=== PATIENT | male | born 1965 | race Caucasian/White ===

== ENCOUNTER 2017-09-16 07:30 | Emergency (ER) | payer OTHER ==
[2017-09-16 07:45] VITALS: BP 181/94
--- NOTE | 2017-09-16 07:48 | UC ---
Ear Complaint HPI - HPI Summary HPI Summary: This is eric Bruno Porter documenting for attending Ken Barney MD. This patient is a 52 year old M [place] [facility] chief complaint of left ear pain for the last 2 days. Pt states the onset occurred when he was sitting watching tv. He has felt like there is liquid in his ear for a long time but has not seen an ear doctor. The patient rates the pain 8/10 in severity. Symptoms alleviated by ibuprofen. Patient reports decreased auditory acuity. He denies sore throat, cough, chest congestion, and fever. Pt states he has a hx of otitis externa and this feels similar. - History of Current Complaint Chief Complaint: UCEar Stated Complaint: EAR ISSUE Hx Obtained From: Patient Onset/Duration: Lasting Days - 2, Still Present Severity Initially: Severe Severity Currently: Severe Pain Intensity: 8 Pain Scale Used: 0-10 Numeric Alleviating Factors: OTC Meds Associated Signs/Symptoms: Positive: Hearing Loss - Allergies/Home Medications Allergies/Adverse Reactions: Allergies Allergy/AdvReac Type Severity Reaction Status Date / Time Penicillins Allergy anaph Verified 09/16/17 07:37 Sulfa (Sulfonamide Allergy Swelling Verified 09/16/17 07:37 Antibiotics) PMH/Surg Hx/FS Hx/Imm Hx - Additional Past Medical History Additional PMH: otitis externa Cardiovascular History: Hypertension - not on meds Other History Of: Negative For: Anticoagulant Therapy - Surgical History Surgical History: Yes Surgery Procedure, Year, and Place: Fractured right arm as a child - Family History Known Family History: Negative: Cardiac Disease, Hypertension, Diabetes - Social History Lives: With Family - and children Alcohol Use: Rare Substance Use Type: None Smoking Status (MU): Never Smoked Tobacco - Immunization History Most Recent Tetanus Shot: Unknown Review of Systems Constitutional: Negative - fever ENT: Ear Ache, Other - mild hearing loss All Other Systems Reviewed And Are Negative: Yes Physical Exam - Summary Physical Exam Summary: General: well-appearing, no pain distress Skin: warm, color reflects adequate perfusion, dry Head: normal Eyes: EOMI, JESSICA ENT: The left ear canal is swollen, moist, and there is some scaring on the bilateral tms. Pt is ttp of tragus and traction on the pinna on the left Neck: supple, nontender Respiratory: CTA, breath sounds present Cardiovascular: RRR Abdomen: soft, nontender Bowel: present Musculoskeletal: normal, strength/ROM intact Neurological: sensory/motor intact, A&O x3 Psychological: affect/mood appropriate Triage Information Reviewed: Yes Vital Signs: Initial Vital Signs Temp 98 F 09/16/17 07:40 Pulse 77 09/16/17 07:40 Resp 16 09/16/17 07:40 BP 181/94 09/16/17 07:40 Pulse Ox 100 09/16/17 07:40 Vital Signs Reviewed: Yes Ear Complaint Course/Dx - Course Course Of Treatment: BP noted and patient was advised to follow up with his PCP. IN THE PAST, THE PATIENT REPORTS THE NEED FOR PO ABX THEREFORE, RX BOTH EAR DROPS AND PO ABX. F/U PMD AND ENT. - Differential Dx/Diagnosis Provider Diagnoses: LEFT OTITIS EXTERNA. HTN Discharge - Sign-Out/Discharge Documenting (check all that apply): Patient Departure - Discharge Plan Condition: Stable Disposition: HOME Prescriptions: Ciprofloxacin TAB* [Cipro 500 MG TAB*] 500 mg PO BID #20 tab Ciprofloxacin/Hydrocortisone [Cipro Hc Otic Suspension] 3 drop OT BID #10 ml Patient Education Materials: Otitis Externa (ED) Referrals: [facility] [Provider Group] Mariano Burgos MD [Primary Care Provider] - Wolf Beard MD [Medical Doctor] - Additional Instructions: FOLLOW UP WITH YOUR PRIMARY CARE DOCTOR AND DR BEARD, ENT. GET RECHECKED FOR ANY WORSENING OF YOUR CONDITION OR QUESTIONS OR CONCERNS. Your blood pressure was elevated during todays visit; please follow up with your primary care provider within a week for further evaluation. - Billing Disposition and Condition Condition: STABLE Disposition: Home Attestation Statement Scribe Attestation: This is eric Porter documenting for attending Ken Barney MD. User Type: Provider with Scribe Provider Attestation: The documentation recorded by the somibe accurately reflects the service I personally performed and the decisions made by me.
== END 2017-09-16 08:15 | disposition home or self-care (01) ==
LOC: UCEAST 07:30
DX: H60.92 Unspecified otitis externa, left ear (principal); I10 Essential (primary) hypertension; Z88.0 Allergy status to penicillin; Z88.1 Allergy status to other antibiotic agents
CPT/HCPCS: 99202; G0463

== ENCOUNTER 2019-04-03 09:10 | Emergency (ER) | payer OTHER ==
--- OUTSIDE RECORDS SUMMARY | 2019-04-03 09:18 | XMS REPORT | Continuity of Care Document ---
:1965 External Reference #:[id number] Author Name Louisa Sharma PA-C Address [address] [place] [address] Care Team Providers Name Role Phone Mariano Burgos M.D. 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 Seafood Problems Active Problems Provider Date Essential hypertension Shahab Argueta MD Onset: 09/16/2017 Obesity Shahab Argueta MD Onset: 09/20/2017 Diffuse otitis externa Shahab Argueta MD Onset: 09/20/2017 Social History Type Date Description Comments Sex Unknown Tobacco Use Start: Unknown Never Smoked Cigarettes Tobacco Use Start: Unknown Never Smoked Cigars Tobacco Use Start: Unknown Never Smoked A Pipe Smokeless Tobacco Never Used Smokeless Tobacco ETOH Use Currently rarely consumes alcohol Tobacco Use Start: Unknown Patient has never smoked Smoking Status Reviewed: 03/15/19 Patient has never smoked Allergies, Adverse Reactions, Alerts Active Allergies Reaction Severity Comments Date Sulfa 12/03/2003 Penicillin 12/03/2003 Medications Active Medications SIG Qnty Indications Ordering Provider Date Tobramycin-Dexamethaso apply to right ear 10ml E66.9 Wolf Ray 2019 ne 2 times a day for MD Chirag 0.3-0.1% Suspension 10 days. Multivitamin Men as directed Unknown Tablets Tumeric Unknown Probiotic Acidophilus 1 by mouth every Unknown day Capsules Cipro HC instill 4 drops in 10ml Vitor N. 0.2-1% right ear two Cassandra Saha Suspension times per day Immunizations Description No Information Available Vital Signs Date Vital Result Comment 03/15/2019 3:09pm Body Temperature 97.5 F Weight 350.00 lb Weight 158.760 kg Height 72.75 inches 6'0.75" Height in cm's 184.8 cm BMI (Body Mass Index) 46.5 kg/m2 10/29/2017 8:52am Weight 350.00 lb Weight 158.760 kg Height 72.75 inches 6'0.75" Height in cm's 184.8 cm BMI (Body Mass Index) 46.5 kg/m2 Results Description No Information Available Procedures Date Code Description Status 03/15/2019 89887 Binocular Microscopy Completed Medical Devices Description No Information Available Encounters Type Date Location Provider Dx Diagnosis Office Visit 03/15/2019 Shen Sharma, H60.312 Diffuse otitis 3:00p 02-08-2019 PAHenny externa, left ear E66.9 Obesity, unspecified Assessments Date Code Description Provider 03/15/2019 H60.312 Diffuse otitis externa, left ear Louisa Sharma PA-C 03/15/2019 E66.9 Obesity, unspecified Louisa Sharma PA-C Plan of Treatment 03/15/2019 - FRANCO EdwardCH60.312 Diffuse otitis externa, left earE66.9 Obesity, unspecifiedNew Medication:Tobramycin-Dexamethasone 0.3-0.1 % - apply to right ear 2 times a day for 10 days.Follow up:6 months bradly GOEL Functional Status Description No Information Available Mental Status Description No Information Available Referrals Description No Information Available
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
[2019-04-03 09:22] VITALS: BP 171/75
--- NOTE | 2019-04-03 09:27 | UC ---
FLU HPI - HPI Summary HPI Summary: 54 yo male presents, accompanied by family members, with flu-like symptoms. He tells me that for the past 3-4 days he has felt feverish, fatigue, dry cough, runny nose, sore throat, and body aches. He has been taking OTC herbal supplements for his symptoms with little relief. He did not get a flu shot this year. Other family members have tested positive for the flu. He denies any PMHx. Denies SOB, chest pain, abdominal pain, n/v/d/c. - History of Current Complaint Chief Complaint: UCGeneralIllness Stated Complaint: GENERAL ILLNESS Time Seen by Provider: 04/03/19 09:27 Hx Obtained From: Patient Onset/Duration: Sudden Onset Severity Currently: Moderate Severity Initially: Moderate Pain Intensity: 6 Pain Scale Used: 0-10 Numeric - Allergy/Home Medications Allergies/Adverse Reactions: Allergies Allergy/AdvReac Type Severity Reaction Status Date / Time Penicillins Allergy anaph Verified 04/03/19 09:22 Sulfa (Sulfonamide Allergy Swelling Verified 04/03/19 09:22 Antibiotics) Home Medications: Home Medications Albuterol HFA INHALER* [Ventolin HFA Inhaler*] 1 - 2 puff INH Q6H PRN #1 mdi [Rx] PMH/Surg Hx/FS Hx/Imm Hx - Additional Past Medical History Additional PMH: None Other History Of: Negative For: Anticoagulant Therapy - Surgical History Surgical History: Yes Surgery Procedure, Year, and Place: Fractured right arm as a child - Family History Known Family History: Negative: Cardiac Disease, Hypertension, Diabetes - Social History Lives: With Family Alcohol Use: Rare Substance Use Type: None Smoking Status (MU): Never Smoked Tobacco - Immunization History Most Recent Tetanus Shot: Unknown Review of Systems All Other Systems Reviewed And Are Negative: No Constitutional: Positive: Fever, Fatigue, Other - Body aches Skin: Positive: Negative Eyes: Positive: Negative ENT: Positive: Sore Throat, Nasal Discharge Respiratory: Positive: Cough Cardiovascular: Positive: Negative Gastrointestinal: Positive: Negative Neurological/Mental Status: Positive: Negative Psychological: Positive: Negative Physical Exam - Summary Physical Exam Summary: GENERAL: NAD. WDWN. No pain distress. SKIN: No rashes, sores, lesions, or open wounds. HEENT: Head: AT/NC Eyes: EOM intact. Conjunctiva clear without inflammation or discharge. Ears: Hearing grossly normal. TMs intact, no bulging, erythema, or edema. Nose: Nasal mucosa pink and moist. NTTP maxillary and frontal sinus. Throat: Posterior oropharynx with mild erythema. No exudates or tonsillar enlargement. Uvula midline. NECK: Supple. Nontender. No lymphadenopathy. CHEST: Mild wheezing throughout. CTAB. No r/r. No accessory muscle use. Breathing comfortably and in no distress. CV: RRR. Pulses intact. Cap refill <2seconds NEURO: Alert. PSYCH: Age appropriate behavior. Triage Information Reviewed: Yes Vital Signs: Initial Vital Signs Temp 97.8 F 04/03/19 09:19 Pulse 77 04/03/19 09:19 Resp 16 04/03/19 09:19 BP 171/75 04/03/19 09:19 Pulse Ox 96 04/03/19 09:19 Laboratory Tests 04/03/19 04/03/19 10:12 10:39 Influenza B (Rapid) Positive H Group A Strep Rapid Negative Vital Signs Reviewed: Yes Diagnostics - Radiology CXR Radiology Interpretation Completed By: Radiologist Summary of Radiographic Findings: IMPRESSION: No active cardiopulmonary disease is noted. Flu Course/Dx - Course Course Of Treatment: POC flu positive. POC strep negative. CXR as above. Rx for albuterol and advised supportive care for flu. - Differential Dx/Diagnosis Provider Diagnosis: Influenza Discharge ED - Sign-Out/Discharge Documenting (check all that apply): Patient Departure All imaging exams completed and their final reports reviewed: Yes - Discharge Plan Condition: Stable Disposition: HOME Prescriptions: Albuterol HFA INHALER* [Ventolin HFA Inhaler*] 1 - 2 puff INH Q6H PRN #1 mdi PRN Reason: Sob/Wheezing Patient Education Materials: Influenza (ED) Forms: *Work Release Referrals: Mariano Burgos MD [Primary Care Provider] - Additional Instructions: If you develop a fever, shortness of breath, chest pain, new or worsening symptoms - please call your PCP or go to the ED immediately. Your blood pressure was high at todays visit. Please see your primary provider within 4 weeks for recheck and re-evaluation. Most people with the flu recover within one to two weeks without treatment. However, serious complications of the flu can occur. Go to the ER immediately if you: -- You feel short of breath or have trouble breathing -- You have pain or pressure in your chest or stomach -- You have signs of being dehydrated, such as dizziness when standing or not passing urine -- You feel confused -- You cannot stop vomiting or you cannot drink enough fluids There are several groups of people who are at increased risk for flu complications. These include women, young children (<5 years of age and especially <2 years of age), people older than 65 years of age, and people with certain diseases such as chronic lung disease (such as asthma), heart disease, diabetes, immunosuppressing conditions (such as HIV infection or transplantation), and some other diseases. Treat symptoms Treating the symptoms of influenza can help you to feel better but will not make the flu go away faster. -- Rest until the flu is fully resolved, especially if the illness has been severe. -- Fluids Drink enough fluids so that you do not become dehydrated. One way to estate and trust tax principal if you are drinking enough is to look at the color of your urine. Normally, urine should be light yellow to nearly colorless. If you are drinking enough, you should pass urine every three to five hours. -- Acetaminophen (sample brand name: Tylenol) can relieve fever, headache, and muscle aches. Aspirin and medicines that include aspirin (eg, bismuth subsalicylate [sample brand name: Pepto-Bismol]) are not recommended for children under 18 because aspirin can lead to a serious disease called Hillary syndrome. -- Cough medicines are not usually helpful; cough usually resolves without treatment. We do not recommend cough or cold medicine for children under age 6 years. Antiviral treatment Antiviral medicines can be used to treat or prevent influenza. When used as a treatment, the medicine does not eliminate flu symptoms, although it can reduce the severity and duration of symptoms by about one day. Not every person with influenza needs an antiviral medicine, but some people do; the decision is based upon several factors. If you are severely ill and/or have risk factors for developing complications of influenza, you will need an antiviral agent. People who are only mildly ill and have no risk factors for complications usually do not need to be treated with antiviral medication. - Billing Disposition and Condition Condition: STABLE Disposition: Home
[2019-04-03 10:18] LABS: Influenza B Molecular POSITIVE (Negative)
== END 2019-04-03 11:19 | disposition home or self-care (01) ==
LOC: UCEAST 09:10
DX: J11.1 Influenza due to unidentified influenza virus with other respiratory manifestations (principal); Z88.0 Allergy status to penicillin; Z88.2 Allergy status to sulfonamides
CPT/HCPCS: 71046; 87651; 99212; G0463